=== PATIENT | female | born 1955 | race Caucasian/White ===

== ENCOUNTER 2018-08-15 09:34 | Observation (INO) | payer OTHER ==
[~2018-08-15] VITALS: Ht 162.6 cm; Wt 60.7 kg
[2018-08-15] VITALS (7 sets, daily range): BP systolic 134–176; BP diastolic 79–90; PULSE 59–69; RESP 18–19; Ht 162.6 cm; Wt 60.7 kg
--- NOTE | 2018-08-15 11:53 | ERD ---
ER Documentation Chief Complaint Chief Complaint CP AND HIGH BP X 4 DAYS. HPI 63-year-old female presents the emergency department complaining of high blood pressure and chest pain. Patient states for the last 4 days, she is felt as if her blood pressures been high. Associated with this, she has a nonspecific pressure-like sensation in her chest. This causes her to be dizzy and lightheaded. She reports no shortness of breath. Chest pain is nonspecific and non-provoked and nonexertional. She reports it is moderate at this time. ROS All systems reviewed and are negative except as per history of present illness. PMhx/Soc Hx Alcohol Use: No Hx Substance Use: No Hx Tobacco Use: No Smoking Status: Former smoker Physical Exam Vitals Vital Signs Date Temp Pulse Resp B/P (MAP) Pulse Ox O2 O2 Flow FiO2 Time Delivery Rate 08/15/18 98.0 64 18 199/86 99 10:15 (123) 08/15/18 98.1 66 18 220/95 99 09:38 (136) Physical Exam GENERAL: The patient is well developed and appropriate for usual state of health in no apparent distress HEENT: Pupils equal, round, and reactive to light. EOMI. There is no scleral icterus. NECK: C-spine is soft and supple, there is no meningismus. There is no cervical lymphadenopathy. LUNGS: Clear to auscultation bilaterally. There are no rales, wheezes or rhonchi. HEART: Regular rate and rhythm, no murmurs, clicks, rubs or gallops. ABDOMEN: Soft, non-tender, non-distended. There are bowel sounds in all four quadrants. No rebound or guarding. EXTREMITIES: There is no peripheral cyanosis or edema. No focal swelling or erythema. NEURO: The patient moves all four extremities with 5/5 strength. Cranial nerves II - XII are intact. Normal gait. Alert and oriented SKIN: There is no apparent rash or petechiae. HEME/LYMPHATIC: There is no evidence of excessive bruising or lymphedema. PSYCHIATRIC: The patient does not appear anxious or depressed. Result Diagram: 08/15/18 1005 08/15/18 1005 Results 24 hrs Laboratory Tests Test 08/15/18 10:05 White Blood Count 7.2 10^3/ul Red Blood Count 4.99 10^6/ul Hemoglobin 13.9 g/dl Hematocrit 40.0 % Mean Corpuscular Volume 80.2 fl Mean Corpuscular Hemoglobin 27.9 pg Mean Corpuscular Hemoglobin Concent 34.8 g/dl Red Cell Distribution Width 11.8 % Platelet Count 237 10^3/UL Mean Platelet Volume 11.5 fl Immature Granulocytes % 0.300 % Neutrophils % 63.4 % Lymphocytes % 27.9 % Monocytes % 6.6 % Eosinophils % 1.4 % Basophils % 0.4 % Nucleated Red Blood Cells % 0.0 /100WBC Immature Granulocytes # 0.020 10^3/ul Neutrophils # 4.5 10^3/ul Lymphocytes # 2.0 10^3/ul Monocytes # 0.5 10^3/ul Eosinophils # 0.1 10^3/ul Basophils # 0.0 10^3/ul Nucleated Red Blood Cells # 0.0 10^3/ul Sodium Level 132 mmol/L Potassium Level 3.8 mmol/L Chloride Level 96 mmol/L Carbon Dioxide Level 25 mmol/L Anion Gap 11 Blood Urea Nitrogen 7 mg/dl Creatinine 0.42 mg/dl Est Glomerular Filtrat Rate mL/min > 60 mL/min Glucose Level 108 mg/dl Calcium Level 9.3 mg/dl Troponin I < 0.012 ng/ml Procedures/MDM Patient was taken to a room, seen and evaluated. Comfort measures were initiated. Diagnostic tests were ordered and reviewed. 3 LEAD RHYTHM STRIP: Normal sinus rhythm without ectopy EK lead EKG reviewed by myself: Normal Sinus Rhythm Normal [place] and intervals No ST elevation, depression, or T wave inversion, nonspecific ST and T wave changes Impression: Normal EKG RADIOLOGY: Reviewed with the radiologist CONSULTATION: Hospitalist was notified for admission REEVALUATION: Patient is remained hemodynamically stable in the emergency department. Diagnostic tests were appreciated and discussed with the patient for admission. MEDICAL DECISION MAKING: Patient presents with chest pain of uncertain etiology. Differential diagnosis considered includes acute myocardial infarction, pulmonar y embolism, as well as vascular and pulmonary concerns. I have reviewed the patients clinical risk factors, EKG, lab studies and imaging. At this time, her initial diagnostic tests are reassuring, but given her age, her hypertension and her nonspecific EKG, she is obviously at risk for this being cardiac in etiology and will be admitted for further cardiac evaluation. Departure Diagnosis: Primary Impression: Chest pain Condition: MARCIANO Baird Aug 15, 2018 11:53
[2018-08-15] MEDS ORDERED: ASPIRIN 325 MG TAB PO ONE (12:30)
[2018-08-15] MEDS: SOD CHLORIDE 0.45% 1,000 ML IV SCH (12:55)
[2018-08-15] MEDS ORDERED: DOCUSATE SODIUM 100 MG CAP PO PRN (13:00)
[2018-08-15] MEDS ORDERED: morphine 2 MG INJ IV PRN (13:00)
[2018-08-15] MEDS ORDERED: MAGNESIUM HYDROXIDE 30ML CUP PO PRN (13:00)
[2018-08-15] MEDS ORDERED: ALBUTEROL/IPRATROPIUM (NEB) 3 ML AMP HHN PRN (13:00)
[2018-08-15] MEDS ORDERED: HYDROCODONE/APAP (5/325) TAB PO PRN (13:00)
[2018-08-15] MEDS ORDERED: ACETAMINOPHEN 325 MG TAB PO PRN (13:00)
[2018-08-15] MEDS ORDERED: NITROGLYCERIN (SL) 0.4 MG TAB SL PRN (13:00)
[2018-08-15] MEDS ORDERED: hydrALAzine 20 MG INJ IV PRN (13:00)
[2018-08-15] MEDS ORDERED: ONDANSETRON 4 MG INJ IV PRN (13:00)
[2018-08-15] MEDS ORDERED: NACL 0.9% 3 ML SYG IV SCH (13:00)
[2018-08-15] MEDS ORDERED: LORAZEPAM 2 MG INJ IV PRN (13:00)
--- NOTE | 2018-08-15 14:13 | HP ---
Date/Time of Note Date/Time of Note DATE: 08/15/18 TIME: 14:09 Assessment/Plan VTE Prophylaxis SCD applied (from Nsg): No SCD contraindicated: other Pharmacological prophylaxis: heparin Lines/Catheters IV Catheter Type (from Nrsg): Sal[place] Lock Assessment/Plan Hospital Course Assessment and plan: 63-year-old female coming in with chest pressure and hypertensive urgency. #Chest pain/pressure: Rule out musculoskeletal source versus ACS -Admit patient, put on high-dose aspirin, morphine, oxygen, nitroglycerin as needed, check echocardiogram -We will trend her troponins checked every 6 hours x3 total #Hypertensive urgency: Patient apparently compliant with her medicines at home -Hydralazine as needed systolic greater 160, start low-dose calcium channel carlos. #High cholesterol: Follow-up lipid panel #Glaucoma: No present issues -Continue to monitor for now Result Diagram: 08/15/18 1005 08/15/18 1005 Results 24hrs Laboratory Tests Test 08/15/18 10:05 White Blood Count 7.2 Red Blood Count 4.99 Hemoglobin 13.9 Hematocrit 40.0 Mean Corpuscular Volume 80.2 L Mean Corpuscular Hemoglobin 27.9 L Mean Corpuscular Hemoglobin Concent 34.8 Red Cell Distribution Width 11.8 Platelet Count 237 Mean Platelet Volume 11.5 H Immature Granulocytes % 0.300 Neutrophils % 63.4 Lymphocytes % 27.9 Monocytes % 6.6 Eosinophils % 1.4 Basophils % 0.4 Nucleated Red Blood Cells % 0.0 Immature Granulocytes # 0.020 Neutrophils # 4.5 Lymphocytes # 2.0 Monocytes # 0.5 Eosinophils # 0.1 Basophils # 0.0 Nucleated Red Blood Cells # 0.0 Sodium Level 132 L Potassium Level 3.8 Chloride Level 96 L Carbon Dioxide Level 25 Anion Gap 11 Blood Urea Nitrogen 7 Creatinine 0.42 L Est Glomerular Filtrat Rate mL/min > 60 Glucose Level 108 Calcium Level 9.3 Troponin I < 0.012 HPI/ROS Admit Date/Time Admit Date/Time Hx of Present Illness 63-year-old female with past medical history of hypertension, glaucoma, high cholesterol who presents the emergency department complaining of high blood pressure and chest pain. Patient states for the last 2-3 days, she is felt as if her blood pressures been high. Apparently patient has been compliant with her home medicines. She also complained of some mild chest pressure. She also had some dizziness and lightheaded. She reports no shortness of breath. Chest pain is nonspecific and non-provoked and nonexertional. She reports it is moderate at this time. When she came in today she was found with elevated systolic blood pressure in the 190-200 range. PMH/Family/Social Past Medical History Medications Current Medications IV Flush (NS 3 ml) 3 ml PER PROTOCOL IV ; Start 08/15/18 at 13:00 Ondansetron HCl (Zofran Inj) 4 mg Q6H PRN IV NAUSEA/VOMITING; Start 08/15/18 at 13:00 Acetaminophen (Tylenol Tab) 650 mg Q6H PRN PO .PAIN 1-3 OR TEMP; Start 08/15/18 at 13:00 Acetaminophen/ Hydrocodone Bitart ([place] (5/325)) 1 tab Q6H PRN PO .MOD PAIN 4- 6; Start 08/15/18 at 13:00 Morphine Sulfate (morphine) 2 mg Q4H PRN IV .SEVERE PAIN 7-10; Start 08/15/18 at 13:00 Docusate Sodium (Colace) 100 mg Q12H PRN PO .CONSTIPATION; Start 08/15/18 at 13:00 Magnesium Hydroxide (Milk Of Mag) 30 ml DAILY PRN PO .CONSTIPATION; Start 08/15/18 at 13:00 Heparin Sodium (Porcine) (Heparin (5000 Units/1ml)) 5,000 unit Q12 SC ; Start 08/15/18 at 21:00 Sodium Chloride 1,000 ml @ 75 mls/hr [id number] IV ; Start 08/15/18 at 12:55 Lorazepam (Ativan) 0.5 mg Q6H PRN IV ANXIETY; Start 08/15/18 at 13:00 Albuterol/ Ipratropium (Duoneb) 3 ml Q4H RESP THERAPY PRN HHN SHORTNESS OF BREATH; Start 08/15/18 at 13:00 Hydralazine HCl (Apresoline) 10 mg Q6H PRN IV ELEVATED BLOOD PRESSURE; Start 08/15/18 at 13:00 Clonidine (Catapres) 0.1 mg Q6H PRN PO ELEVATED BLOOD PRESSURE; Start 08/15/18 at 13:00 Nitroglycerin (Nitroglycerin (Sl Tab) 0.4 Mg) 1 tab Q5M PRN SL ANGINA; Start at 13:00 Aspirin (Ecotrin) 325 mg DAILY PO ; Start 08/16/18 at 09:00 Amlodipine Besylate (Norvasc) 5 mg DAILY PO ; Start 08/16/18 at 09:00 Coded Allergies: No Known Allergy (Unverified , 08/15/18) Past Surgical History Past Surgical Hx: no surgical history Social History Alcohol Use: none Smoking Status: Former smoker Drug Use: none Exam/Review of Systems Vital Signs Vitals Vital Signs Date Temp Pulse Resp B/P (MAP) Pulse Ox O2 O2 Flow FiO2 Time Delivery Rate 08/15/18 97.3 74 18 149/87 99 14:02 (107) Exam Exam GENERAL: Lying in bed, answers questions appropriately, no acute distress HEENT: Pupils equal, round, and reactive to light. EOMI. There is no scleral icterus. NECK: C-spine is soft and supple, there is no meningismus. There is no cervical lymphadenopathy. LUNGS: Clear to auscultation bilaterally. There are no rales, wheezes or rhonchi. HEART: Regular rate and rhythm, no murmurs, rubs or gallops. ABDOMEN: Soft, non-tender, non-distended. There are bowel sounds in all four quadrants. No rebound or guarding. EXTREMITIES: There is no peripheral cyanosis or edema. No focal swelling or erythema. NEURO: No focal deficits BHAVIN BAKER Aug 15, 2018 14:13
[2018-08-15] MEDS ORDERED: BENA20TA4 PO (17:49)
[2018-08-15] MEDS ORDERED: CETI10TA34 PO (17:49)
[2018-08-15] MEDS ORDERED: ATEN-51 PO (17:49)
[2018-08-15] MEDS: HEPARIN 5,000 UNIT/1 ML VIAL SC SCH (21:32)
[2018-08-16] VITALS (9 sets, daily range): BP systolic 124–139; BP diastolic 61–75; PULSE 55–79; RESP 18–19
[2018-08-16] MEDS: SOD CHLORIDE 0.45% 1,000 ML IV SCH ×2 (02:56→15:35)
[2018-08-16] MEDS: HEPARIN 5,000 UNIT/1 ML VIAL SC SCH (08:39)
[2018-08-16] MEDS ORDERED: AMLODIPINE 5 MG TAB PO SCH (09:00)
[2018-08-16] MEDS ORDERED: ASPIRIN (EC) 325 MG TAB PO SCH (09:00)
--- NOTE | 2018-08-16 13:32 | PDOCDIS ---
Discharge Instructions CONDITION [id number] Patient Condition: [id number] Good HOME CARE INSTRUCTIONS: [id number] Diet Instructions: [id number] Reduced Calorie ACTIVITY: [id number] Activity Restrictions: [id number] No Restrictions FOLLOW UP/APPOINTMENTS Follow-up Plan FOLLOW UP WITH YOUR PCP IN 1-2 WEEKS ROSALINDA PEPE Aug 16, 2018 13:32
--- NOTE | 2018-08-16 15:53 | RADRPT ---
Echocardiogram Report Patient Name: Kenneth CASTROnt ID: [id number] : 1955 (63y 5m)Study Date: 08/16/2018 8:53:16 AM Gender: FAccession #: [id number] Tech: [facility] [place] Location: Ref.Physician: BHAVIN BAKER Height(Cm): BSA: Weight(Kg): Quality: AdequateAccount #: Procedures: Echocardiographic Report: Transthoracic echocardiogram with complete 2D, M-Mode, and doppler examination. Indications: Chest Pain. Measurements: 2D/M Mode Doppler Measurement Value Normal Range Measurement Value Normal Range LVIDd 2D 4.2 [ 3.8 - 5.2 ] cm AV Peak Carmelo 1.5 [ 100.0 - 170.0 ] cm/se c LVIDs 2D 2.4 [ 2.2 - 3.5 ] cm AV Peak PG 9.0 [ 2.0 - 9.0 ] mmHg LVPWd 2D 1.0 [ 0.6 - 0.9 ] cm LVOT Peak Carmelo 0.8 [ 70.0 - 110.0 ] cm/sec IVSd 2D 1.1 [ 0.6 - 0.9 ] cm LVOT Peak PG 3.0 [ 2.0 - 6.0 ] mmHg AoR Diam 2D 3.5 [ 2.3 - 3.1 ] cm MV E Peak Carmelo 0.4 [ 60.0 - 130.0 ] cm/sec EDV 2D 76.4 [ 46.0 - 106.0 ] ml MV A Peak Carmelo 0.8 [ 100.0 - 120.0 ] cm/se c ESV 2D 19.5 [ 14.0 - 42.0 ] ml MV E/A 0.5 [ 0.8 - 1.5 ] ratio EF 2D 74.5 [ 54.0 - 74.0 ] percent MV PHT 99.0 [ 20.0 - 100.0 ] msec LA Dimen 2D 3.3 [ 2.7 - 3.8 ] cm MV Decel Time 338 [ 104 - 258 ] msec MV Decel Snyder 1 Lat E` Carmelo 0.1 [ 10.0 - 15.0 ] cm/sec Lateral E/E` 3.9 [ 1.0 - 2.0 ] ratio Med E` Carmelo 0.0 cm/sec MV E/A 0.5 [ 0.8 - 1.5 ] ratio MVA PHT 2.2 [ 2.0 - 4.0 ] cm2 TR Peak Carmelo 2.5 [ 100.0 - 280.0 ] cm/se c TR Peak PG 24.0 mmHg PV Peak Carmelo 1.0 [ 40.0 - 80.0 ] cm/sec PV Peak PG 4.0 mmHg RVSP 27.0 [ 10.0 - 36.0 ] mmHg RA Pressure 3.0 mmHg Findings: Left Ventricle: Normal left ventricular systolic function. Normal left ventricular cavity size. Mild concentric left ventricular hypertrophy. Ejection fraction is visually estimated at >65 %. Tissue Doppler/Mitral Doppler indices are consistent with impaired relaxation (Stage I diastolic dysfunction). E/E'= 10. Right Ventricle: Normal right ventricular size. Normal right ventricular systolic function. Left Atrium: The left atrium is normal in size. Right Atrium: The right atrium is normal in size. Atrial Septum: Normal atrial septum. Mitral Valve: Normal appearance and function of the mitral valve with trace physiologic regurgitation. Aortic Valve: No significant aortic stenosis or insufficiency. Normal trileaflet aortic valve structure. Tricuspid Valve: Normal appearance of the tricuspid valve. Estimated peak PA systolic pressure 27 mmHg. There is mild tricuspid regurgitation. Pulmonic Valve: Normal pulmonic valve appearance. There is trace pulmonic regurgitation. Pericardium: Normal pericardium with no significant pericardial effusion. Aorta: There is mild aortic root dilation. IVC: Normal size and normal respiratory collapse consistent with normal right atrial pressure. Pulmonary Artery: Normal pulmonary artery size. Conclusions: Normal left ventricular systolic function. Normal left ventricular cavity size. Mild concentric left ventricular hypertrophy. Ejection fraction is visually estimated at >65 %. Tissue Doppler/Mitral Doppler indices are consistent with impaired relaxation (Stage I diastolic dysfunction). Normal right ventricular size. Normal right ventricular systolic function. Normal appearance and function of the mitral valve with trace physiologic regurgitation. No significant aortic stenosis or insufficiency. Normal appearance of the tricuspid valve. Estimated peak PA systolic pressure 27 mmHg. There is mild tricuspid regurgitation. Normal pericardium with no significant pericardial effusion. Electronically Signed By: Khari Negron 2018-08-16 15:52:22 PDT
--- NOTE | 2018-08-16 17:14 | DS ---
Date/Time of Note Date/Time of Note DATE: 08/16/18 TIME: 17:01 Discharge Summary Admission/Discharge Info Admit Date/Time Aug 15, 2018 at 11:49 Discharge Date/Time August 16, 2018 Discharge Diagnosis #Chest pain/pressure secondary to musculoskeletal pain and possible anxiety ACS ruled out Pain control, anti-anxiety measures advised #Hypertensive urgency secondary to pain-BP now stable Patient reports compliance with medications Continue home meds #Dyslipidemia Lipid panel within range #Glaucoma: No present issues Patient Condition: Good Hospital Course Patient is 63-year-old female history of hypertension and glaucoma who presents with hypertensive emergency and chest pain. ACS was ruled out and pain is secondary to muscular discomfort secondary to her work and her anxiety. Patient was stable for DC with normalization of blood pressure, on day of discharge patient's vitals, labs and physical exam are stable. Home Meds Reported Medications Benazepril Hcl* (Benazepril Hcl*) 20 Mg Tablet, 20 MG PO DAILY, #30 TAB 08/15/18 Cetirizine Hcl* (Cetirizine Hcl*) 10 Mg Tab.chew, 10 MG PO DAILY, #30 TAB 08/15/18 Atenolol* (Atenolol*) 25 Mg Tablet, 25 MG PO DAILY, #30 TAB 08/15/18 Follow-up Plan FOLLOW UP WITH YOUR PCP IN 1-2 WEEKS Primary Care Provider Care Physician No Primary Time spent on discharge: > 30 minutes ROSALINDA PEPE Aug 16, 2018 17:13
== END 2018-08-16 18:01 | disposition home or self-care (01) ==
LOC: E/R 09:34 → 6WM 11:49
PROVIDERS: ADMIT Hospitalist; ATTEND Internal Medicine
DX: R07.9 Chest pain, unspecified (principal); I10 Essential (primary) hypertension; E78.00 Pure hypercholesterolemia, unspecified; H40.9 Unspecified glaucoma; E78.5 Hyperlipidemia, unspecified
CPT/HCPCS: 36415; 71045; 80048; 80061; 82550; 82553; 83036; 83735; 84100; 84439; 84443; 84484; 85025; 93005; 93306; J0360; J1644; Z7500; Z7502; Z7610; G0378